=== PATIENT | female | born 1990 | race Caucasian/White ===

== ENCOUNTER 2017-05-25 00:15 | Inpatient (IN) | payer OTHER ==
[~2017-05-25] VITALS: Ht 162.6 cm; Wt 78.6 kg
[2017-05-25] MEDS ORDERED: MISOPROSTOL 200 MCG TABLET ONE (00:53)
[2017-05-25] MEDS ORDERED: LIDOCAINE 1%, 20ML ONE (00:53)
[2017-05-25] MEDS ORDERED: OXYTOCIN 30U/ 0.9% NaCL 500ML 500 ML ONE (00:53)
[2017-05-25] MEDS ORDERED: OXYTOCIN 30U/ 0.9% NaCL 500ML 500 ML IV PRN (01:13)
[2017-05-25] MEDS ORDERED: OXYTOCIN 30U/ 0.9% NaCL 500ML 500 ML IV ONE (01:13)
[2017-05-25] MEDS: D5%-LACTATED RINGERS 1,000 ML IV SCH ×2 (01:13→09:13)
[2017-05-25] MEDS: LACTATED RINGERS 1,000 ML IV SCH ×2 (01:13→09:13)
[2017-05-25] MEDS ORDERED: ONDANSETRON 2MG/ML, 2ML IVPush PRN (01:30)
[2017-05-25] MEDS ORDERED: TERBUTALINE 1 MG/ML, 1ML SQ PRN (01:30)
[2017-05-25] MEDS ORDERED: CALCIUM CARBONATE 500 MG TAB.CHEW PO PRN (01:30)
[2017-05-25] MEDS ORDERED: FENTANYL PF 100 MCG/2ML IV PRN (01:30)
[2017-05-25 02:00] VITALS: BP 120/74
[2017-05-25] MEDS ORDERED: PLEASE ENTER HEIGHT AND WEIGHT MC SCH (02:30)
[2017-05-25] MEDS ORDERED: FENTANYL PF 100 MCG/2ML ONE ×2 (03:30→05:11)
[2017-05-25] MEDS: FENTANYL PF 100 MCG/2ML IVPush PRN ×2 (03:34→05:15)
[2017-05-25] MEDS ORDERED: NEWBORN KIT ONE (05:31)
[2017-05-25] MEDS ORDERED: OXYTOCIN 10 UNITS/ML, 1ML ONE (07:03)
[2017-05-25] MEDS ORDERED: OXYTOCIN 10 UNITS/ML, 1ML IM ONE (07:15)
[2017-05-25] MEDS: IBUPROFEN 600 MG TABLET PO PRN ×3 (07:26→20:06)
[2017-05-25] MEDS ORDERED: IBUPROFEN 200 MG TABLET PO ONE (07:30)
[2017-05-25] MEDS ORDERED: OXYTOCIN 30U/ 0.9% NaCL 500ML 500 ML IV SCH (07:47)
[2017-05-25] MEDS ORDERED: IBUPROFEN 600 MG TABLET ONE (07:57)
[2017-05-25] MEDS ORDERED: RHOGAM FROM BLOOD BANK 1 NOTE EA IM/IV ONE (08:00)
[2017-05-25] MEDS ORDERED: ACETAMINOPHEN 325 MG TABLET PO PRN ×2 (08:00)
[2017-05-25] MEDS ORDERED: HYDROcodone/APAP 5/325 TABLET PO PRN (08:00)
[2017-05-25] MEDS ORDERED: MISOPROSTOL 200 MCG TABLET PR PRN (08:00)
[2017-05-25 11:00] VITALS: BP 109/65
[2017-05-25 12:20] VITALS: BP 109/71
[2017-05-25] MEDS: PRENATAL VIT/IRON/FA 1 EACH TABLET PO SCH (14:32)
[2017-05-25] MEDS: HYDROcodone/APAP 5/325 TABLET PO PRN ×2 (16:28→20:06)
[2017-05-25 16:50] LABS: DIFF TOTAL CELLS COUNTED 200 CELL DIFF; VERIFY COUNTS? YES
[2017-05-25 19:40] VITALS: BP 120/67
[2017-05-25] MEDS: DOCUSATE 100 MG CAPSULE PO PRN (20:06)
[2017-05-25] MEDS ORDERED: IBUP-1222 PO (23:31)
[2017-05-25] MEDS ORDERED: HYDR-3240 PO ×2 (23:32→23:34)
[2017-05-26 00:05] VITALS: BP 115/72
[2017-05-26] MEDS: HYDROcodone/APAP 5/325 TABLET PO PRN ×2 (00:15→04:41)
[2017-05-26] MEDS: IBUPROFEN 600 MG TABLET PO PRN ×3 (04:41→20:44)
[2017-05-26 08:00] VITALS: BP 112/69
[2017-05-26 20:20] VITALS: BP 123/78
[2017-05-26] MEDS: DOCUSATE 100 MG CAPSULE PO PRN (20:44)
[2017-05-26] MEDS: PRENATAL VIT/IRON/FA 1 EACH TABLET PO SCH (20:44)
[2017-05-27] MEDS: IBUPROFEN 600 MG TABLET PO PRN (04:28)
[2017-05-27 07:57] VITALS: BP 120/74
[2017-05-27] MEDS ORDERED: SENN-1 PO (09:20)
[2017-05-27] MEDS: PRENATAL VIT/IRON/FA 1 EACH TABLET PO SCH (09:56)
[2017-05-27] MEDS: DOCUSATE 100 MG CAPSULE PO PRN (09:56)
== END 2017-05-27 10:22 | disposition home or self-care (01) | DRG 775 ==
LOC: LDOP 00:15 → LDIP 01:22 → 2NW 09:47
PROVIDERS: ADMIT Obstetrics & Gynecology; ATTEND Obstetrics & Gynecology
PROC: 10E0XZZ Delivery of Products of Conception, External Approach (ICD-10-PCS; principal; 2017-05-25)
PROC: 0W8NXZZ Division of Female Perineum, External Approach (ICD-10-PCS; 2017-05-25)
DX: O80 Encounter for full-term uncomplicated delivery (principal); Z37.0 Single live birth; Z3A.37 37 weeks gestation of pregnancy
CPT/HCPCS: 36415; 85025; 86850; 86900; 89060; J3010; J2590; Q0114